=== PATIENT | female | born 1930 | race Caucasian/White ===

== ENCOUNTER → 2017-03-17 | Outpatient (CLI) | payer OTHER ==
--- NOTE | 2017-03-17 15:55 | ECHOCARDIOGRAM REPORT ---
*NOTICE TO RECEIVING CONSTITUTION PARTY AGENCY This information is strictly Confidential and protected under [place] law. [place] law prohibits you from making any further disclosure of this information unless further disclosure is expressly permitted by the written consent of the person to whom it pertains or is authorized by law. A general authorization for the release of medical or other information is not sufficient for this purpose. Hospital accepts no responsibility if the information is made available to any other person, INCLUDING THE PATIENT. Interpretation Summary * Name: KINZA CARRASCO Study Date: 03/17/2017 01:03 PM BP: 171/53 mmHg * HR: 69 * : 1930 (M/d/yyyy) Gender: Female Height: 63 in * Age: 86 yrs Ethnicity: [place] Weight: 134 lb * Ordering Physician: Chelsea Kern M.D. * Referring Physician: Chelsea Kern M.D. * Performed By: Earl Castillo RCS * * Reason For Study: Murmur * BSA: 1.6 m2 * -- Conclusions -- * Left ventricular systolic function is normal. * No regional wall motion abnormalities noted. * Ejection Fraction = 60-65%. * There is mild concentric left ventricular hypertrophy. Procedure Details * Left Ventricle The left ventricle is normal in size. There is mild concentric left ventricular hypertrophy. Ejection Fraction = 60-65%. Left ventricular systolic function is normal. No regional wall motion abnormalities noted. * Right Ventricle The right ventricle is normal size. The right ventricular systolic function is normal as assessed by tricuspid annular plane systolic excursion (TAPSE) (normal >1.5 cm). * Atria The left atrium is mildly dilated. The right atrium is mildly dilated. There is no evidence of atrial septal defect, but resolution does not allow assessment for a patent foramen ovale. * Mitral Valve The mitral valve is grossly normal. There is no mitral valve stenosis. Significant mitral regurgitation is absent. * Tricuspid Valve The tricuspid valve is not well visualized, but is grossly normal. There is no tricuspid stenosis. Significant tricuspid regurgitation is absent. * Aortic Valve The aortic valve is trileaflet. The aortic valve opens well. Aortic valve sclerosis moderate, without significant aortic valvular stenosis. * Pulmonic Valve The pulmonary valve is not well seen, but the Doppler examination is normal without significant regurgitation or stenosis. * Great Vessels The aortic root is normal size. The pulmonary is not well visualized. * Pericardium/Pleural There is no pericardial effusion. * Great Vessels Normal inferior vena cava size and collapsability with sniff indicates a normal right atrial pressure of 3 mmHg * * MMode 2D Measurements and Calculations * IVSd 1.1 cm * * LVIDd 4.5 cm * LVIDs 2.5 cm * LVPWd 0.91 cm * * IVS/LVPW 1.2 * FS 43.5 % * EDV(Teich) 92.5 ml * ESV(Teich) 23.3 ml * EF(Teich) 74.8 % * * EDV(cubed) 91.2 ml * ESV(cubed) 16.5 ml * EF(cubed) 81.9 % * * LV mass(C)d 151.0 grams * LV mass(C)dI 92.6 grams/m\S\2 * * SV(Teich) 69.2 ml * SI(Teich) 42.4 ml/m\S\2 * SV(cubed) 74.7 ml * SI(cubed) 45.8 ml/m\S\2 * * LVOT diam 1.9 cm * LVOT area 2.8 cm\S\2 * * LVAd ap4 24.5 cm\S\2 * LVLd ap4 7.4 cm * EDV(MOD-sp4) 66.1 ml * EDV(sp4-el) 69.0 ml * LVAs ap4 12.3 cm\S\2 * LVLs ap4 5.9 cm * ESV(MOD-sp4) 21.1 ml * ESV(sp4-el) 21.8 ml * EF(MOD-sp4) 68.0 % * EF(sp4-el) 68.5 % * * LVAd ap2 24.7 cm\S\2 * LVLd ap2 7.0 cm * EDV(MOD-sp2) 71.8 ml * EDV(sp2-el) 73.9 ml * LVAs ap2 11.7 cm\S\2 * LVLs ap2 5.7 cm * ESV(MOD-sp2) 21.3 ml * ESV(sp2-el) 20.7 ml * EF(MOD-sp2) 70.4 % * EF(sp2-el) 72.0 % * * LVLd %diff -5.44 % * EDV(MOD-bp) 70.2 ml * LVLs %diff -4.90 % * ESV(MOD-bp) 20.9 ml * EF(MOD-bp) 70.2 % * * SV(MOD-sp4) 44.9 ml * SI(MOD-sp4) 27.5 ml/m\S\2 * * SV(MOD-sp2) 50.6 ml * SI(MOD-sp2) 31.0 ml/m\S\2 * * SV(MOD-bp) 49.2 ml * SI(MOD-bp) 30.2 ml/m\S\2 * * SV(sp4-el) 47.2 ml * SI(sp4-el) 29.0 ml/m\S\2 * * SV(sp2-el) 53.2 ml * SI(sp2-el) 32.6 ml/m\S\2 * * * * Doppler Measurements and Calculations * MV E max mike 79.5 cm/sec * MV A max mike 51.5 cm/sec * * MV E/A 1.5 * * MV dec time 0.21 sec * * Ao V2 max 195.5 cm/sec * Ao max PG 15.3 mmHg * Ao max PG (full) 7.8 mmHg * CHAITANYA(V,A) 1.9 cm\S\2 * CHAITANYA(V,D) 1.9 cm\S\2 * * LV V1 max PG 7.5 mmHg * LV V1 mean PG 3.1 mmHg * * LV V1 max 137.1 cm/sec * LV V1 mean 77.7 cm/sec * LV V1 VTI 28.2 cm * * SV(LVOT) 78.0 ml * SI(LVOT) 47.8 ml/m\S\2 * * TR max mike 202.6 cm/sec * *
== END | disposition home or self-care (01) ==
LOC: C.CPL 12:20
PROVIDERS: ATTEND Family Medicine
DX: R01.1 Cardiac murmur, unspecified (principal)

== ENCOUNTER 2018-01-29 09:47 | Emergency (ER) | payer OTHER ==
[~2018-01-29] VITALS: Ht 160 cm; Wt 65.9 kg
[2018-01-29 10:02] VITALS: TEMP 36.9; Ht 160 cm; Wt 65.9 kg
[2018-01-29] MEDS ORDERED: SODIUM CHLORIDE 0.9% 1000ML 1,000 ML IV STA (10:27)
[2018-01-29] MEDS ORDERED: ATOR10TA82 PO (10:31)
[2018-01-29] MEDS ORDERED: CHOL1000 PO (10:31)
[2018-01-29 10:42] LABS: BASO % 0.5 %; BASO ABS # 0.04 K/uL (0-0.2); EOS % 4.2 %; EOS ABS # 0.33 K/uL (0-0.5); HEMATOCRIT 39.2 % (37-47); HEMOGLOBIN 12.9 g/dL (12.0-16.0); IG# 0.01 K/uL (0.00-0.02); LYMPH % 34.5 %; LYMPH ABS # 2.71 K/uL (1.2-3.4); MEAN CORPUSCULAR HEMOGLOBIN 29.9 pg (25-34); MEAN CORPUSCULAR HGB CONC 32.9 g/dl (32-36); MEAN PLATELET VOLUME 9.9 fL (7.4-10.4); MONO % 10.8 %; MONO ABS # 0.85 K/uL (0.11-0.59); NEUT % 49.9 %; NEUT ABS # 3.92 K/uL (1.4-6.5); PLATELET COUNT 287 K/uL (130-400); RED CELL DISTRIBUTION WIDTH SD 43.5 fL (36.4-46.3); WHITE BLOOD COUNT 7.86 K/uL (4.8-10.8)
[2018-01-29 10:46] LABS: PTT PATIENT 21.2 SECONDS (21.0-31.0)
[2018-01-29 10:49] LABS: ALBUMIN 3.4 gm/dl (3.4-5.0); ALT/SGPT 17 U/L (12-78); AST/SGOT 19 U/L (15-37); BLOOD UREA NITROGEN 21 mg/dl (7-18); CALCIUM 8.6 mg/dl (8.5-10.1); CARBON DIOXIDE 26 mmol/L (21-32); CREATININE 0.88 mg/dl (0.60-1.20); GLUCOSE 103 mg/dl (70-99); POTASSIUM 3.9 mmol/L (3.5-5.1); SODIUM 143 mmol/L (136-145)
[2018-01-29 11:00] LABS: ALKALINE PHOSPHATASE 64 U/L (45-117)
--- NOTE | 2018-01-29 11:00 | DIAGNOSTIC IMAGING REPORT ---
CHEST ONE VIEW PORTABLE CLINICAL HISTORY: Atrial fibrillation. COMPARISON STUDY: No previous studies for comparison. FINDINGS: Opacity at the right cardiophrenic angle is noted. There is no pneumothorax or definite pleural effusion. No evidence for pulmonary edema. Mild cardiomegaly is noted. IMPRESSION: 1. No acute cardiopulmonary findings. 2. Right cardiophrenic angle opacity which is nonspecific but likely reflects epicardial fat pad or a hernia. Electronically signed by: Keenan Givens M.D. 01/29/2018 10:59 AM Dictated Date/Time: 01/29/2018 10:57 AM
--- NOTE | 2018-01-29 11:12 | DIAGNOSTIC IMAGING REPORT ---
HEAD WITHOUT CONTRAST (CT) CLINICAL HISTORY: 87 years-old Female with DONOHUE, epistaxis, sinusitis. Acute headache TECHNIQUE: Multiple axial CT images of the head were obtained without contrast. A dose lowering technique was utilized adhering to the principles of ALARA. COMPARISON: CT maxillofacial same day FINDINGS: No acute intracranial hemorrhage, midline shift, intracranial mass, hydrocephalus, territorial ischemia or abnormal extra-axial collection. Mild to moderate atrophy with mild degree of ill-defined low-attenuation within the periventricular white matter suggesting chronic microvascular ischemic changes. The calvarium is intact. The paranasal sinuses, mastoid air cells, and middle ear cavities are clear. IMPRESSION: No acute intracranial abnormality. The above report was generated using voice recognition software. It may contain grammatical, syntax or spelling errors. Electronically signed by: Aaron Sher M.D. 01/29/2018 11:11 AM Dictated Date/Time: 01/29/2018 11:08 AM
--- NOTE | 2018-01-29 11:17 | DIAGNOSTIC IMAGING REPORT ---
SINUSES-MAXILLOFACIAL W/O HISTORY: 87 years-old Female sinusitis acute sinusitis with vomiting and facial pain COMPARISON: CT head of same day TECHNIQUE: Multiple axial CT images of the maxillofacial bones were obtained without the use of IV contrast. A dose lowering technique was used consistent with the principals of DONITA. FINDINGS: Thinning of the optic lenses suggest prior cataract repair. Bilateral palatine tonsilliths. Mild layering secretions of the nasopharynx. Large ossification about the heart palate. Soft tissues are unremarkable. Mastoid air cells and middle ear cavities are clear. The sphenoid sinuses are clear. Minimal mucosal thickening of the inferior frontal sinuses with minimal mucosal thickening about the anterior maxillary sinuses, best seen on the coronal images. There is minimal mucosal thickening about the ethmoid air cells. Mild rightward bowing and spurring of the nasal septum. No large eliana bullosa. No Tamera cell. Bilateral maxillary ostiomeatal units, frontoethmoidal and sphenoethmoidal recesses are patent. Twyla wilbert appears normal. No acute facial bone fracture or dislocation identified. Degenerative changes of the imaged cervical spine without fracture. IMPRESSION: 1. No acute facial bone fracture or dislocation. 2. No significant soft tissue swelling. 3. Only minimal paranasal sinus disease as above with mild rightward bowing and spurring of the nasal septum. The above report was generated using voice recognition software. It may contain grammatical, syntax or spelling errors. Electronically signed by: Aaron Sher M.D. 01/29/2018 11:16 AM Dictated Date/Time: 01/29/2018 11:11 AM
--- NOTE | 2018-01-29 13:11 | EMERGENCY ROOM VISIT NOTE ---
History Report prepared by Sergio: Biju Hollins Under the Supervision of: Dr. Karine Nicolas M.D. First contact with patient: 10:12 Chief Complaint: GI ASSESSMENT Stated Complaint: GI ASSESSMENT Nursing Triage Summary: Pt arrive from home by ALS for episode of vomiting. Pt reports she was standing at the sink this morning, swished her mouth out with water and then vomiting a moderate amnt of what looked like old blood. Pt reports she then had a nose bleed. EMS did not see any blood from pt's nose, but dried blood noted around pt's mouth. Pt denies melena. Denies SOB, CP, Abd pain. pt did report to EMS that she has had abd pain "for months", saw PCP for it. Upon EMS arrival pt was A-fib on monitor, 140s-160s. Medicated with 15mg Cardizem en route. Rate now in the 80-90s History of Present Illness The patient is a 87 year old female who presents to the Emergency Room by EMS with complaints of an episode of hematemesis occurring just prior to arrival. She states that she woke up and was standing at her sink, swishing water in her mouth, when the episode occurred. She states that her vomit appeared "brown" in color. The patient states that she noticed that she had a nose bleed at this time. She notes that she recently finished an antibiotic treatment for sinus infection. She also notes that she has been taking medication for seasonal allergies recently. The patient also complains of a cough. She does not take Aspirin, or any other blood thinners. She denies melena, or hematochezia. The patient denies recent falls or trauma. She states that she has been tasting blood at night when she is laying down. She has not had anything to eat yet this morning. Source of History: patient Onset: Just prior to arrival Quality: other (hematemesis) Timing: other (episode) Associated Symptoms: + cough, No melena, No hematochezia Review of Systems See HPI for pertinent positives & negatives. A total of 10 systems reviewed and were otherwise negative. Past Medical & Surgical Medical Problems: (1) HLD (hyperlipidemia) Family History No pertinent family history stated. Social History Smoking Status: Never Smoker Marital Status: Housing Status: lives with family Occupation Status: retired Current/Historical Medications Scheduled Atorvastatin (Lipitor), 1 TAB PO DAILY Cholecalciferol (Vitamin D3), 1 TAB PO DAILY Allergies Coded Allergies: No Known Allergies (Unverified , 01/29/18) Physical Exam Vital Signs Date Time Temp Pulse Resp B/P (MAP) Pulse Ox O2 Delivery O2 Flow Rate FiO2 01/29/18 13:35 82 20 135/96 96 01/29/18 12:39 86 18 96/79 98 Room Air 01/29/18 12:28 95 01/29/18 11:44 93 18 133/74 96 Room Air 01/29/18 10:49 67 18 110/88 97 Room Air 01/29/18 10:06 88 01/29/18 10:02 36.9 74 18 117/74 96 Room Air Physical Exam Vital signs reviewed. General: Well-appearing elderly female, in no significant distress. HEENT: No scleral icterus, PERRLA, neck supple. Atraumatic. Dried blood noted in the mouth. No blood seen in the bilateral nares. Cardiovascular: Irregular rhythm with rate control, no extra sounds. Pulmonary: Clear to auscultation bilaterally, normal work of breathing. Abdomen: Soft, nontender, nondistended, positive bowel sounds. Musculoskeletal: Atraumatic, no peripheral edema. Neurologic: Patient awake alert and oriented x 3 Skin: Warm, dry, no rash Medical Decision & Procedures ER Provider Diagnostic Interpretation: Radiology results as stated below per my review and radiologist interpretation: CHEST ONE VIEW PORTABLE FINDINGS: Opacity at the right cardiophrenic angle is noted. There is no pneumothorax or definite pleural effusion. No evidence for pulmonary edema. Mild cardiomegaly is noted. IMPRESSION: 1. No acute cardiopulmonary findings. 2. Right cardiophrenic angle opacity which is nonspecific but likely reflects epicardial fat pad or a hernia. Electronically signed by: Keenan Givens M.D. 01/29/2018 10:59 AM HEAD WITHOUT CONTRAST (CT) FINDINGS: No acute intracranial hemorrhage, midline shift, intracranial mass, hydrocephalus, territorial ischemia or abnormal extra-axial collection. Mild to moderate atrophy with mild degree of ill-defined low-attenuation within the periventricular white matter suggesting chronic microvascular ischemic changes. The calvarium is intact. The paranasal sinuses, mastoid air cells, and middle ear cavities are clear. IMPRESSION: No acute intracranial abnormality. The above report was generated using voice recognition software. It may contain grammatical, syntax or spelling errors. Electronically signed by: Aaron Sher M.D. 01/29/2018 11:11 AM SINUSES-MAXILLOFACIAL W/O FINDINGS: Thinning of the optic lenses suggest prior cataract repair. Bilateral palatine tonsilliths. Mild layering secretions of the nasopharynx. Large ossification about the heart palate. Soft tissues are unremarkable. Mastoid air cells and middle ear cavities are clear. The sphenoid sinuses are clear. Minimal mucosal thickening of the inferior frontal sinuses with minimal mucosal thickening about the anterior maxillary sinuses, best seen on the coronal images. There is minimal mucosal thickening about the ethmoid air cells. Mild rightward bowing and spurring of the nasal septum. No large eliana bullosa. No Tamera cell. Bilateral maxillary ostiomeatal units, frontoethmoidal and sphenoethmoidal recesses are patent. Twyla wilbert appears normal. No acute facial bone fracture or dislocation identified. Degenerative changes of the imaged cervical spine without fracture. IMPRESSION: 1. No acute facial bone fracture or dislocation. 2. No significant soft tissue swelling. 3. Only minimal paranasal sinus disease as above with mild rightward bowing and spurring of the nasal septum. The above report was generated using voice recognition software. It may contain grammatical, syntax or spelling errors. Electronically signed by: Aaron Sher M.D. 01/29/2018 11:16 AM Laboratory Results 01/29/18 09:55 Red Blood Count 4.31, Mean Corpuscular Volume 91.0, Mean Corpuscular Hemoglobin 29.9, Mean Corpuscular Hemoglobin Concent 32.9, Mean Platelet Volume 9.9, Neutrophils (%) (Auto) 49.9, Lymphocytes (%) (Auto) 34.5, Monocytes (%) (Auto) 10.8, Eosinophils (%) (Auto) 4.2, Basophils (%) (Auto) 0.5, Neutrophils # (Auto ) 3.92, Lymphocytes # (Auto) 2.71, Monocytes # (Auto) 0.85, Eosinophils # (Auto ) 0.33, Basophils # (Auto) 0.04 01/29/18 09:55 Test 01/29/18 09:55 White Blood Count 7.86 K/uL (4.8-10.8) Red Blood Count 4.31 M/uL (4.2-5.4) Hemoglobin 12.9 g/dL (12.0-16.0) Hematocrit 39.2 % (37-47) Mean Corpuscular Volume 91.0 fL (80-100) Mean Corpuscular Hemoglobin 29.9 pg (25-34) Mean Corpuscular Hemoglobin Concent 32.9 g/dl (32-36) Platelet Count 287 K/uL (130-400) Mean Platelet Volume 9.9 fL (7.4-10.4) Neutrophils (%) (Auto) 49.9 % Lymphocytes (%) (Auto) 34.5 % Monocytes (%) (Auto) 10.8 % Eosinophils (%) (Auto) 4.2 % Basophils (%) (Auto) 0.5 % Neutrophils # (Auto) 3.92 K/uL (1.4-6.5) Lymphocytes # (Auto) 2.71 K/uL (1.2-3.4) Monocytes # (Auto) 0.85 K/uL (0.11-0.59) Eosinophils # (Auto) 0.33 K/uL (0-0.5) Basophils # (Auto) 0.04 K/uL (0-0.2) RDW Standard Deviation 43.5 fL (36.4-46.3) RDW Coefficient of Variation 13.0 % (11.5-14.5) Immature Granulocyte % (Auto) 0.1 % Immature Granulocyte # (Auto) 0.01 K/uL (0.00-0.02) Prothrombin Time 10.3 SECONDS (9.0-12.0) Prothromb Time International Ratio 1.0 (0.9-1.1) Activated Partial Thromboplast Time 21.2 SECONDS (21.0-31.0) Partial Thromboplastin Ratio 0.8 Anion Gap 7.0 mmol/L (3-11) Est Creatinine Clear Calc Drug Dose 41.1 ml/min Estimated GFR () 68.5 Estimated GFR (Non- 59.1 BUN/Creatinine Ratio 23.9 (10-20) Calcium Level 8.6 mg/dl (8.5-10.1) Magnesium Level 2.1 mg/dl (1.8-2.4) Total Bilirubin 0.5 mg/dl (0.2-1) Direct Bilirubin 0.1 mg/dl (0-0.2) Aspartate Amino Transf (AST/SGOT) 19 U/L (15-37) Alanine Aminotransferase (ALT/SGPT) 17 U/L (12-78) Alkaline Phosphatase 64 U/L (45-117) Troponin I < 0.015 ng/ml (0-0.045) Total Protein 7.0 gm/dl (6.4-8.2) Albumin 3.4 gm/dl (3.4-5.0) Thyroid Stimulating Hormone (TSH) 2.190 uIu/ml (0.300-4.500) Laboratory results per my review. Medications Administered Medications (Trade) Dose Ordered Sig/Jo Route Start Time Stop Time Status Last Admin Dose Admin Sodium Chloride 1,000 ml @ 125 mls/hr Q8H STAT IV 01/29/18 10:27 01/29/18 13:52 DC 01/29/18 10:49 125 MLS/HR ECG Per My Interpretation Indication: vomiting Rate (beats per minute): 94 Rhythm: atrial fibrillation Findings: other (No ST elevations. Non-specific ST changes diffusely. ) ED Course 1022: Past medical records reviewed. The patient was evaluated in room A4B. A complete history and physical examination was performed. 1027: Ordered Sodium Chloride 1000 ml @ 125 mls/hr IV. 1315: Upon reevaluation, the patient appeared to have improvement of her symptoms. I discussed findings with her. She verbalized agreement of the treatment plan. The patient was discharged home. Medical Decision Differential diagnosis: Etiologies such as gastroenteritis, food borne illness, infections, appendicitis , diverticulitis, inflammatory bowel disease, obstruction, GI bleed, biliary pathology, as well as others were entertained. This patient was evaluated and appeared to be in no significant distress. The patient has no active bleeding on exam. She later stated that it felt as though she was swallowing blood early in the morning prior to the episode in the bathroom. The patient has experienced nosebleeds in the past. Patient's laboratory work is fairly unrevealing. She was hydrated with normal saline solution. She had no further bleeding or vomiting during her stay in the ED. CT scan of the head and sinuses was performed as the patient was complaining of pain behind the eyes and sinus pressure. There is minimal inflammatory change appreciated. There is no evidence of acute intracranial abnormality. Patient was advised to use saline nasal spray 4 times daily, sleep with a humidifier in her room. She was given instructions if a recurrent nosebleed should occur. Patient was advised to follow-up with her PCP and ENT if symptoms persist. She will return to the emergency department for worsening of symptoms or any medical concerns. Medication Reconcilliation Current Medication List: was personally reviewed by me Blood Pressure Screening Patient's blood pressure: Normal blood pressure Blood pressure disposition: Did not require urgent referral Impression Primary Impression: Epistaxis Scribe Attestation The scribe's documentation has been prepared under my direction and personally reviewed by me in its entirety. I confirm that the note above accurately reflects all work, treatment, procedures, and medical decision making performed by me. Departure Information Dispostion Home / Self-Care Referrals Chelsea Kern M.D. (PCP) Forms HOME CARE DOCUMENTATION FORM, IMPORTANT VISIT INFORMATION Patient Instructions My [facility] Additional Instructions Diagnosis: Epistaxis (nosebleed) Please drink plenty of water. Use saline nasal spray 3-4 times daily to keep the mucosa moist. Follow-up with your physician if symptoms recur. Avoid scratching, rubbing, picking, or blowing your nose. The lab support service tech your nasal passages the more likely they are to bleed. The following two products are available [id number] at most drug stores/pharmacies: Seward Carmel nasal spray or similar generic saline spray to keep the nose moist 3 to 4 times a day or Apply Monaca gel 2-3 times daily to the nostrils to keep them moist. If bleeding recurs apply direct pressure for an uninterrupted 20 minutes. On and off pressure is much less effective because it will disturb the clots that are forming. If the bleeding is still a problem after 20 minutes or is so heavy despite the pressure return to the emergency department. Follow-up with your primary care physician in 2 to 3 days.
[2018-01-29 13:35] VITALS: BP 135/96; PULSE 82; O2SAT 96
== END 2018-01-29 13:37 | disposition home or self-care (01) ==
LOC: EDBD 09:47 → C.EDA 09:50
DX: R04.0 Epistaxis (principal); E78.5 Hyperlipidemia, unspecified; Z79.899 Other long term (current) drug therapy